=== PATIENT | female | born 1960 | race Caucasian/White ===

== ENCOUNTER 2018-08-29 10:21 | Emergency (ER) | payer OTHER ==
[2018-08-29] MEDS: KETOROLAC 60 MG INJ IM (10:46)
== END 2018-08-29 11:20 | disposition home or self-care (01) ==
LOC: FTE 10:21
DX: J00 Acute nasopharyngitis [common cold] (principal); T14.8XXA Other injury of unspecified body region, initial encounter; I10 Essential (primary) hypertension; E11.9 Type 2 diabetes mellitus without complications; X58.XXXA Exposure to other specified factors, initial encounter; Y92.9 Unspecified place or not applicable; Z79.84 Long term (current) use of oral hypoglycemic drugs
CPT/HCPCS: 96372; 99284-25